=== PATIENT | male | born 1985 | race Caucasian/White ===

== ENCOUNTER 2019-09-18 17:42 | Emergency (ER) | payer OTHER ==
[~2019-09-18] VITALS: Ht 182.9 cm; Wt 75.2 kg
[2019-09-18] MEDS ORDERED: ETOMIDATE 20 MG/10 ML ONE (17:52)
--- NOTE | 2019-09-18 17:55 | NUR ---
LATE ENTRY: PT STRAIGHT BACK D/T SHOULDER DISLOCATION. PT IS RESTLESS AND IN OBVIOUS PAIN, PT SITTING ON GURNEY, AT BS. MD NOTIFIED, ROOM SET UP FOR PROCEDURAL SEDATION. WCTM
[2019-09-18] MEDS ORDERED: FENTANYL PF 100 MCG/2ML ONE (17:56)
[2019-09-18] MEDS ORDERED: ICN FENTANYL 4MCG/ML IV IVPush ONE (18:00)
[2019-09-18] MEDS ORDERED: FENTANYL PF 100 MCG/2ML IVPush ONE ×2 (18:00→19:30)
[2019-09-18] MEDS ORDERED: ETOMIDATE 40 MG/20 ML IVPush ONE ×2 (18:00→19:00)
--- NOTE | 2019-09-18 18:14 | NUR ---
MD Conroy at bedside to reduce shoulder, pt on ETCO2 monitor
--- NOTE | 2019-09-18 19:00 | NUR ---
REPORT TO GARRET LOO AT BEDSIDE, PT CARE TRANSFERRED AT THIS TIME.
--- NOTE | 2019-09-18 19:07 | NUR ---
report of pt from torito mcgarry and assuming care of pt at this time
--- NOTE | 2019-09-18 19:37 | NUR ---
REPORT OF PT FROM EDIL RN. PT WAS DIFFICULT TO SEDATE FOR MODERATE SEDATION. 25 MCG FENTANYL ADDITIONAL WAS ORDERED AND GIVEN BY CINDA ENRIQUE DURING PROCEDURE, THAT THIS RN WAS UNABLE TO WITNESS. ORDERS AND ADMINISTRATION OF MEDICATION BY CINDA ENRIQUE WAS CONFIRMED AND WITNESSED BY DR. KAY. ORDER WAS NOT YET PLACED PRIOR TO DAY SHIFT LEAVING, SO VERBAL REQUEST TO DOCUMENT FOR DAY SHIFT WAS RECEIVED AND PERFORMED BY THIS RN. PT D/C WITH D/C SUMMARY AND SCRIPTS, ALL QUESTIONS ANSWERED. PT VERBALIZES UNDERSTANDING OF F/U INSTRUCTIONS AND HOME CARE. IVS D/C WITH TIPS INTACT. PT VSS PRIOR TO D/C. PT AMBULATES TO REGISTRATION DESK WITH STEADY GAIT FOR D/C HOME WITH SPOUSE. CONTROLLED SUBSTANCES SHEET SIGNED BY PT AND PLACED WITH PT CHART.
[2019-09-18 19:41] VITALS: BP 118/75
== END 2019-09-18 19:43 | disposition home or self-care (01) ==
LOC: ED 19:00
DX: S43.004A Unspecified dislocation of right shoulder joint, initial encounter (principal); X58.XXXA Exposure to other specified factors, initial encounter; Y93.89 Activity, other specified; Y92.89 Other specified places as the place of occurrence of the external cause; Y99.8 Other external cause status
CPT/HCPCS: 23650; 73030; 99285; J3010; 99152

== ENCOUNTER → 2020-08-11 | Outpatient (CLI) | payer OTHER | END | disposition home or self-care (01) | LOC: CFH 07:34 | PROVIDERS: ATTEND Pain Medicine Interventional Pain Medicine | DX: S12.400A Unspecified displaced fracture of fifth cervical vertebra, initial encounter for closed fracture (principal); S13.160A Subluxation of C5/C6 cervical vertebrae, initial encounter; M50.223 Other cervical disc displacement at C6-C7 level; M25.78 Osteophyte, vertebrae; M48.02 Spinal stenosis, cervical region; X58.XXXA Exposure to other specified factors, initial encounter; Y93.89 Activity, other specified; Y92.89 Other specified places as the place of occurrence of the external cause; Y99.8 Other external cause status | CPT/HCPCS: 72125; 72141 ==